=== PATIENT | female | born 1985 | race Caucasian/White ===

== ENCOUNTER → 2017-08-15 | Outpatient (CLI) | payer BC ==
--- NOTE | 2017-08-15 16:11 | RADIOLOGY REPORT (SQ) ---
EXAM DESCRIPTION: U/S RETROPERITON (RENAL/AORTA) COMPLETED DATE/TIME: 08/15/2017 3:35 pm REASON FOR STUDY: DYSURIA R30.0 DYSURIA COMPARISON: None. TECHNIQUE: Dynamic and static grayscale images acquired of the kidneys and bladder and recorded on P ACS. Additional selected color Doppler and spectral images recorded. LIMITATIONS: None. FINDINGS: RIGHT KIDNEY: Normal size. Normal echogenicity. No solid or suspicious masses. No hydronep hrosis. No calcifications. LEFT KIDNEY: Normal size. Normal echogenicity. No solid or suspicious masses. No hydronephrosis. No calcifications. BLADDER: Mobile debris present within. No mass or stones. Pre and postvoid bladder volumes approxim ately 243 and 5.3 cubic cm. OTHER FINDINGS: No other significant finding. IMPRESSION: Mobile debris within the bladder. Otherwise unremarkable renal -bladder ultrasound. TECHNICAL DOCUMENTATION: JOB ID: [id number] [employer]- All Rights Reserved Reading location - IP/workstation name: [email or web address]
== END ==
LOC: RAD 15:05
PROVIDERS: ATTEND Urology
DX: R30.0 Dysuria (principal)
CPT/HCPCS: 76770

== ENCOUNTER 2017-08-24 10:51 | Day surgery (SDC) | payer BC ==
[~2017-08-24 10:51] MED LIST: CEFAZOLIN 1 GM/D5W RTU 1 GM/50 ML RTUPB IV PRN; RINGERS SOLUTION,LACTATED 1,000 ML IV PRN
[2017-08-24] MEDS ORDERED: FENTANYL CITRATE INJ/PF 100 MCG/2 ML AMPUL ONE (11:31)
[2017-08-24] MEDS ORDERED: LIDOCAINE 2% INJ-PF (20 MG/ML) 10 ML AMPUL ONE (11:31)
[2017-08-24] MEDS ORDERED: MIDAZOLAM 2 MG/2 ML INJ ONE ×2 (11:31→11:56)
[2017-08-24] MEDS ORDERED: ONDANSETRON HCL INJ/PF 4 MG/2 ML SDV ONE ×2 (11:32→11:56)
[2017-08-24] MEDS ORDERED: DEXAMETHASONE SOD PHOSPHATE INJ 4 MG/1 ML VIAL ONE (11:32)
[2017-08-24] MEDS ORDERED: PROPOFOL INJ 200 MG/20 ML VIAL IV ONE (11:33)
[2017-08-24] MEDS ORDERED: ACETAMINOPHEN 100 ML IV ONE ×2 (11:33→13:48)
[2017-08-24] MEDS ORDERED: [UNRECOGNIZED DRUG - OTHER] MC PRN ×2 (11:51)
[2017-08-24] MEDS ORDERED: DIMETHYL SULFOXIDE MC PRN ×2 (11:51)
[2017-08-24] MEDS ORDERED: [UNRECOGNIZED DRUG - OTHER] MC PRN ×5 (11:52)
[2017-08-24] MEDS ORDERED: SODIUM BICARBONATE MC PRN ×5 (11:52)
[2017-08-24] MEDS ORDERED: HEPARIN SODIUM PORCINE MC PRN ×5 (11:52)
[2017-08-24] MEDS ORDERED: FAMOTIDINE INJ/PF 20 MG/2 ML SDV IV ONE (11:57)
[2017-08-24] MEDS ORDERED: METOCLOPRAMIDE HCL INJ/PF 10 MG/2 ML SDV ONE (11:59)
[2017-08-24] MEDS ORDERED: ALBUTEROL SULFATE 0.083% NEB 2.5 MG/3 ML AMPUL NEB ONE (12:07)
[2017-08-24] MEDS ORDERED: LIDOCAINE 2% URO-JET 5 ML KIT ONE (13:01)
[2017-08-24] MEDS: FENTANYL CITRATE INJ/PF 100 MCG/2 ML AMPUL ONE ×2 (13:40→13:42)
[2017-08-24] MEDS ORDERED: DIPHENHYDRAMINE HCL 50 MG/ML VIAL IV PRN (13:42)
[2017-08-24] MEDS ORDERED: PROMETHAZINE HCL INJ 25 MG/1 ML VIAL IV PRN ×2 (13:42)
[2017-08-24] MEDS ORDERED: MORPHINE SULFATE 10 MG/ML INJ IV PRN (13:42)
[2017-08-24] MEDS ORDERED: MEPERIDINE HCL/PF INJ 25 MG/1 ML DISP.SYRIN IV PRN (13:42)
[2017-08-24] MEDS ORDERED: ONDANSETRON HCL INJ/PF 4 MG/2 ML SDV IV PRN (13:42)
[2017-08-24] MEDS ORDERED: OXYCODONE-ACETAMINOPHEN 5-325 MG TABLET PO PRN ×2 (13:42)
[2017-08-24] MEDS ORDERED: FENTANYL CITRATE INJ/PF 100 MCG/2 ML AMPUL IV PRN ×3 (13:42)
[2017-08-24] MEDS ORDERED: KETOROLAC TROMETHAMINE INJ/PF 30 MG/1 ML SDV ONE (13:47)
[2017-08-24] MEDS ORDERED: PHENAZOPYRIDINE HCL 200 MG TABLET ONE (14:29)
[2017-08-24] MEDS ORDERED: MORPHINE SULFATE 10 MG/ML INJ ONE (14:59)
[2017-08-24] MEDS ORDERED: KETOROLAC TROMETHAMINE INJ/PF 30 MG/1 ML SDV INJ ONE (15:00)
[2017-08-24] MEDS ORDERED: PHENAZOPYRIDINE HCL 200 MG TABLET PO ONE (15:00)
[2017-08-24] MEDS ORDERED: MORPHINE SULFATE 10 MG/ML INJ IV ONE (16:30)
[2017-08-24 17:01] VITALS: BP 133/79
--- NOTE | 2017-08-27 13:45 | OPERATIVE REPORT E ---
Operative Report NAME: JANET PALACIOS : 1985 AGE: 32Y DATE OF SURGERY: 08/24/2017 ROOM: PREOPERATIVE DIAGNOSIS: RULE OUT INTERSTITIAL CYSTITIS. POSTOPERATIVE DIAGNOSIS: INTERSTITIAL CYSTITIS. OPERATION: SURGEON: ASH SINGH M.D. SALON SUPERVISOR: None. TISSUE REMOVED OR ALTERED: Bladder tissue. COMPLICATIONS: None. ESTIMATED BLOOD LOSS: Minimal. INDICATIONS: The patient is a 32-year-old lady how has had bladder pain and urinary irritative voiding symptoms for at least the last decade. She has been treated multiple times for presumed UTIs but they are not culture-proven infections. Her symptoms are suggestive of interstitial cystitis. Cystoscopy with bladder dilation and instillation of a "DMSO cocktail" is planned. Potential complications are discussed including, but were not limited to bleeding, infection, failure to diagnose interstitial cystitis, need for additional surgery, bladder perforation. The patient appeared to understand the various options for treatment as well as risks and benefits and wish to proceed with the proposed surgery. DESCRIPTION OF PROCEDURE: After the patient was identified in the preop holding area, she was brought to the operating room. A time out was performed where the correct patient and procedure was confirmed. Following this, she was given general anesthesia. She was then carefully positioned in the dorsal lithotomy position. She was then prepped and draped in the routine sterile manner. A #23 obturator and sheath was inserted into the bladder. A panendoscope was used to examine the bladder. There was a reddened area with stellate appearance on the posterior bladder wall and a small adjacent lesion of similar appearance, that were suggestive of a Hunner's ulcer. This area was biopsied and then the base and periphery was cauterized. The bladder was distended to a total of 700 mL at which point it was left distended for 5 minutes. After emptying the bladder, there were several other areas that were suggestive of Hunner's ulcer and were also cauterized. The remainder of the bladder was unremarkable. The ureteral orifices appeared normal. Instillation of "DMSO cocktail," (a mixture of 50 mL of DMSO, 100 mg of hydrocortisone, 20,000 units of Heparin, 10 mL of 4.8% sodium bicarbonate, and 10 mL of 0.50% Marcaine) was instilled into the bladder. Patient was returned to recovery room in stable condition. PLAN: She will be discharged with further follow up as an outpatient. I explained that she may have worse pain for the next couple of days but that she may achieve considerable relief of her symptoms from the bladder dilation and cauterization of Hunner's ulcers. If she remains symptomatic, then further options will include bladder instillations with DMSO, Elmiron, increasing her dose of amitriptyline, among others. DICTATING PHYSICIAN: ASH SINGH M.D. [id number] PHY#: [id number] ID: [id number] JOB#: [id number] ACCT: [id number] cc:ASH SINGH M.D. > MTDD
== END 2017-08-24 16:20 | disposition home or self-care (01) ==
LOC: OROUT 10:51
PROVIDERS: ATTEND Urology
PROC: 0T7B8ZZ Dilation of Bladder, Via Natural or Artificial Opening Endoscopic (ICD-10-PCS; principal; 2017-08-24 13:00)
DX: N30.10 Interstitial cystitis (chronic) without hematuria (principal); R39.89 Other symptoms and signs involving the genitourinary system; R35.0 Frequency of micturition; Z79.899 Other long term (current) drug therapy; Z87.440 Personal history of urinary (tract) infections
CPT/HCPCS: 81025; 88342 ×2; 88305 ×2; 94640; 52260; C1758; C1769; J2250; J3490 ×6; J0690; J1100; J1212; J3010; J1644; J1720; J1885; J2765; J2270; J2405; J2704; S0028; J0131; 910